=== PATIENT | male | born 1995 | race Caucasian/White ===

== ENCOUNTER 2019-02-13 20:04 | Inpatient (IN) | payer OTHER ==
[~2019-02-13] VITALS: Ht 182.9 cm; Wt 88.0 kg
[2019-02-13 20:09] VITALS: Ht 182.9 cm; Wt 88.0 kg
--- NOTE | 2019-02-13 20:10 | NUR ---
PT PRESENTS TO ED BIB [facility]. [place] [facility] HERE TO PLACE PT ON 5150 HOLD. PER [facility] PT WAS FOUND OUTSIDE OF A BANK SLEEPING. PT FAMILY WAS APPARENTLY LOOKING FOR HIM WHEN PT STATED HE TOOK DOUBLE HIS ZYPREXA BECAUSE HE WANTED TO "SLEEP". PT MOTHER STATES THAT THE PRESCRIPTION WAS FILLED YESTERDAY AND SHE COUNTED THE PILLS AND THERFORE HE ONLY TOOK 40MG. PT IS AXO X4. PT APPEARS AGITATED AND IS YELLING AND SCREAMING AND PD. PT IS THRASHING ARMS AND LEGS. PT PT ATTEMPTING TO LEAVE UNIT AND STATES HE DOES NOT WANT TO STAY HERE. PT STATES THAT "MEDICINE IS EVIL". PT SPEAKING IN CLEAR AND FULL SENTENCES. PT DENIES PAIN, SI OR HI AT THIS TIME. AWAITING MSE AT THIS TIME
--- NOTE | 2019-02-13 20:14 | NUR ---
PT PLACED IN RESTRAINTS FOR YELLING AND CURSING AND AGITATION, NEWS CAMERAMAN WAS VIOLENT WITH PD AND FIRE
--- NOTE | 2019-02-13 20:32 | NUR ---
ORIGINAL 5150 PLACED IN CHART
[2019-02-13 20:45] LABS: BASOPHIL % 0.6 % (0-2); PLATELET COUNT 274 x10^3mcL (130-400); RED CELL DISTRIBUTION WIDTH 13.1 % (11.5-14.5)
--- NOTE | 2019-02-13 20:45 | NUR ---
ALL PERSONAL BELONGINGS REMOVED FROM PT AND PLACED IN RADIO ROOM WITH STICKER FOR LABEL ON BAG
[2019-02-13 20:55] LABS: CALCIUM 8.8 mg/dL (8.5-10.1); CARBON DIOXIDE 25.1 mmol/L (21-32); CHLORIDE SERUM 107 mmol/L (98-107); CREATININE SERUM 1.4 mg/dL (0.7-1.3); GFR1 > 60 mL/min; GLUCOSE SERUM 121 mg/dL (74-106); POTASSIUM SERUM 3.5 mmol/L (3.5-5.1); SODIUM SERUM 145 mmol/L (136-145)
--- NOTE | 2019-02-13 20:55 | NUR ---
BROTHER AT [facility] PT STATES THAT HIS MOTHER IS NOT ALLOWED TO COME IN AT THIS TIME
[2019-02-13 21:02] LABS: AMPHETAMINE QUAL UR NONE DETECTED (See below)
[2019-02-13 21:04] LABS: ALBUMIN 4.5 g/dL (3.4-5.0); ALKALINE PHOSPHATASE 56 U/L (46-116); ALT/SGPT 23 U/L (16-63); AST/SGOT 16 U/L (15-37); BILIRUBIN TOTAL 0.9 mg/dL (0.20-1.00); TOTAL PROTEIN, SERUM 7.8 g/dL (6.4-8.2)
--- NOTE | 2019-02-13 21:45 | NUR ---
BROTHER STILL AT BEDSIDE. CURTAIN OPEN TO THE NURSES STATION. NAD AT THIS TIME. RESTRAINTS STILL IN PLACE. PT IS CALM AND COOPERATIVE AT THIS TIME
--- NOTE | 2019-02-13 22:03 | NUR ---
BL LE SOFT RESTRAINTS REMOVED FOR CONTINUED COOPERATION
--- NOTE | 2019-02-13 23:42 | NUR ---
BL WRIST RESTRAINTS REMOVED AT THIS TIME FOR PT COOPERATION. PT GIRLFRIEND AT BEDSIDE AT THIS TIME
--- NOTE | 2019-02-14 00:25 | NUR ---
PT PROVIDED WITH PUDDING, APPLE JUICE, APPLE SAUCE AND JELLO AT THIS TIME FOR HUNGER. GIRLFRIEND AND BROTHER STILL AT BEDSIDE
--- NOTE | 2019-02-14 02:11 | NUR ---
PT ASLEEP ON GURNEY, EASILY AROUSABLE, RESP E/U, IN NO ACUTE DISTRESS. BROTHER AT BEDSIDE.
--- NOTE | 2019-02-14 02:24 | NUR ---
PT AMBULATED TO THE RESTROOOM.
--- NOTE | 2019-02-14 03:35 | NUR ---
PT SEEN WANDERING AROUND ROOM AND TAKING HIS GOWN OFF. PT TOLD TO STAY IN ROOM. PT COOPERATIVE AT THIS TIME
--- NOTE | 2019-02-14 04:51 | NUR ---
PT SEEN AMBULATING TO RESTROOM WITH STEADY GAIT. ACCOMPANIED BY JONATHAN WARNER. PT RETURNED TO [facility] TO LAY IN [facility]
--- NOTE | 2019-02-14 06:36 | NUR ---
PT EASILY AROUSABLE AT THIS TIME. PT VITALS UPDATED. PT MADE AWARE BELONGINGS ARE KEPT BY US AND HE MAY HAVE THEM BACK UPON DISCHARGE. PT STATES HE WAS WORRIED ABOUT HIS SHIRT. ALL QUESTIONS ANSWERED AT THIS TIME
--- NOTE | 2019-02-14 07:10 | NUR ---
REPORT GIVEN TO ALESIA ARZOLA
--- NOTE | 2019-02-14 07:25 | NUR ---
RECEIVED PATIENT IN BED, ASKED IF HE CAN GO TO THE RESTROOM. AMBULATED WITH PATIENT TO RESTROOM. PATIENT AMBULATED TO RESTROOM WITH STEADY GAIT, RETURNED BACK TO BED 7, NOW EATING BREAKFAST. PATIENT IS AAO X 3 (NAME, , AND LOCATION). EYES - GORGE. MUCUS - PINK. LUNGS - CTA. BS PRESENT X 4 QUADRANTS. B/L UPPER AND LOWER EXT PULSES PALPABLE. WILL CONTINUE TO MONITOR.//APR RN
--- NOTE | 2019-02-14 07:40 | NUR ---
PATIENT REQUESTED TO CALL HIS FATHER, HAD PATIENT USE PHONE ON THE HALLWAY. PATIENT ABLE TO LEAVE MESSAGE FOR HIS FATHER. PATIENT RETURNED TO BED 7 AT THIS TIME.//SEP RN
--- NOTE | 2019-02-14 09:13 | NUR ---
MOTHER, ANGELI LU CALLED APPRISED OF PATIENT'S CONDITION. STATES "HE WAS FOUND BY PD IN [place], REFUSED TO TAKE MEDS, HE WAS DIAGNOSED WITH BIPOLAR WITH SEVERE PSYCHOSIS WITH HALLUCINATIONS X 3 YEARS AGO, TOOK ZYPREXIA LAST NIGHT 2 TABS (OF 20 MG), WAS SEEN BY PSYCHIATRIST ON FRIDAY. STATES TO CALL HIS FATHER BARBIE AVILA WHO IS THE PRESIDENT OF [facility] HE'S AT [phone]. MOTHER'S CONTACT NUMBER [phone]. PSYCHIATRIST NAME YAKELIN HALIMA AT [phone]. MOTHER WILL CALL PATIENT'S FATHER TO ARRANGE POTENTIAL TRANSFER/ADMISSION TO [facility]. REFRIGERATION PLANT OPERATOR AND BUSINESS OBJECTS DEVELOPER MADE AWARE./SEP RN
--- NOTE | 2019-02-14 09:45 | NUR ---
PATIENT'S FATHER CALLED, STATES "I'LL TRY TO GET HIM A BED AT [facility]." STATES 'IF YOU CAN CALL HIS PSYCHIATRIST, DR VARGHESE REGARDING HIS ZYPREXIA MEDICATION AND I'LL SEE WHAT I CAN DO ON GETTING HIM A BED HERE BUT IT'S LONG WEEKEND, BUT I'LL GET BACK TO YOU." PATIENT TALKING TO FATHER AT THIS TIME, GETTING AGITATED DR JACOBO MADE AWARE.//APR RN
--- NOTE | 2019-02-14 10:15 | NUR ---
APPRISED DR JACOBO ABOUT MY CONVERSATIONS WITH PATIENT'S PARENTS. ADVISED OF ? ABOUT ZYPREXIA MEDS, PER DR ROCHA PATIENT IS HERE FOR ZYPREXIA OD. NO NEW ORDERS GIVEN AT THIS TIME//SEP RN
--- NOTE | 2019-02-14 10:26 | NUR ---
Report was given at change of shift and am aware of patient per monitoring notes and plan facilitated by staff and family
--- NOTE | 2019-02-14 10:26 | NUR ---
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 I WILL GET DROPPED OUT AGAIN BECAUSE OF THIS STUPID FUCKING HOLD." ADVISED PATIENT TO CALM DOWN HE IS BECOMING VERBALLY ABUSIVE. PATIENT WENT BACK TO BED AT THIS TIME//APR RN
--- NOTE | 2019-02-14 10:36 | NUR ---
RECEIVED A CALL FROM PATIENT'S MOTHER, STATES "DR VARGHESE STATES HE CAN GET HIM AT [facility] FOR PLACEMENT." MOTION PICTURE SCENE BUILDER MADE AWARE.//SEP RN
--- NOTE | 2019-02-14 10:45 | NUR ---
PATIENT ASKED TO SPEAK TO HIS MOTHER, CALLED PATIENT'S MOTHER AT [phone]. JAMSHID RAMIREZ'S PHONEN# GIVEN AT [phone] AT THIS TIME.//SEP DARIUSZ
--- NOTE | 2019-02-14 12:07 | NUR ---
PATIENT SLEEPING AT THIS TIME//APR RN
--- NOTE | 2019-02-14 12:14 | NUR ---
LUNCH PROVIDED FOR PATIENT//APR RN
--- NOTE | 2019-02-14 12:38 | NUR ---
PATIENT ATE 100% OF LUNCH.//APR RN
--- NOTE | 2019-02-14 13:15 | NUR ---
PT LAYING IN GURNEY AWAKE, ALERT, RESP E/U, NAD NOTED, GIRLFRIEND AT BEDSIDE. PT CALM AND COOPERATIVE.
--- NOTE | 2019-02-14 13:44 | NUR ---
SORIN WILSON AT BEDSIDE SPEAKING WITH PT REGARDING PLAN OF CARE.
--- NOTE | 2019-02-14 14:01 | NUR ---
PT HAVING QUESTIONS REGARDING HIS PLAN OF CARE. PT STS "I NEED TO SEE MY MEDICAL RECORDS." INFORMED PT THAT I AM UNABLE TO LET HIM SEE HIS ELECTRONIC MEDICAL RECORDS AT THIS TIME. AND IF HE WOULD LIKE TO SEE HIS PAPER RECORDS HE WOULD BE ABLE TO OBTAIN THAT THROUGH MEDICAL RECORDS. PT WONDERING "WHY AM I STAYING." STEPPED INTO ROOM WITH PT TO SPEAK WITH HIM. PT REPORTING THAT HE "DOESN'T REMEMBER WHAT HAPPENED" AND "HOW I GOT HERE LAST NIGHT." LET PT KNOW THAT HOW HE GOT HERE AND HIS PLAN OF CARE FOR ADMISSION AND THAT HE WILL BE REEVALUATED BY PSYCHIATRY ONCE HE IS ADMITTED. PT'S BROTHER BROUGHT HIM AN ENTIRE BAG OF BELONGINGS. LET PT KNOW THAT HE IS ABLE TO HAVE CERTAIN BELONGINGS LONG HE CONTINUES TO REMAIN CALM AND COOPERTIVE. PT HAS PHONE IN HAND, PT AWARE THAT IF PHONE BECOMES AN ISSUE, THAT I WILL HAVE TO PUT IT WITH THE REST OF HIS BELONGINGS. PT AGREED.
[2019-02-14] MEDS ORDERED: ZYPREXA20 M1 PO (14:13)
--- NOTE | 2019-02-14 14:20 | NUR ---
LET PT KNOW THAT HE NEEDS AN IV IN PLACE PER ADMISSION TO MED SURG UNIT. PT REFUSED IV. EDUCATED PT ON NEEDS TO WHY IV WOULD BE NEEDED. PT VERBALIZED UNDERSTANDING AND STILL REFUSING IV PLACEMENT.
--- NOTE | 2019-02-14 14:29 | NUR ---
PT SITTING ON GURNEY, AWAKE, ALERT, RESP E/U, NAD NOTED, AWAITING ADMISSION TO MED SURG UNIT. GIRLFRIEND AT BEDSIDE.
--- NOTE | 2019-02-14 14:50 | NUR ---
ASKED BY PT TO SPEAK WITH HIS FATHER. PT'S FATHER HAD QUESTIONS REGARDING PLAN OF CARE AND INQUIRING ABOUT PT GOING TO [facility], WHERE HIS PSYCHIATRIST DR VARGHESE IS. LET FATHER KNOW THAT WE HAVE ATTEMPTED TO CALL [facility] AND HAVE ALREADY FAXED OVER PT'S INFORMATION, HOWEVER, WE HAVE BEEN INFORMED THAT [facility] IS CURRENTLY AT [facility]. PT'S FATHER REPORTS THAT HE WILL TRY AND GET IN CONTACT WITH DR VARGHESE.
--- NOTE | 2019-02-14 14:52 | NUR ---
SPOKE TO PT REGARDING WANTING TO GO TO [facility]. LET HIM KNOW THAT I HAVE BEEN TOLD THAT THEY ARE AT [facility]. PT UNDERSTOOD AND VERBALIZED UNDERSTANDING OF ADMISSION TO MED SURG AT THIS TIME.
--- NOTE | 2019-02-14 14:59 | NUR ---
REPORT GIVEN TO DARIUSZ FRIEDMAN
--- NOTE | 2019-02-14 15:07 | NUR ---
PT TRANSPORTED TO MED SURG AT THIS TIME BY EMT CELINA AND RN ALESIA VIA WHEELCHAIR. PT IS AWAKE AND ALERT, CALM AND COOPERATIVE, RESP E/U, ALL BELONGINGS SENT WITH PT. ORIGINAL 5150 HOLD IN CHART. PT ACCOMPANIED BY HIS GIRILFRIEND. NAD NOTED UPON LEAVING ED.
--- NOTE | 2019-02-14 15:10 | NUR ---
[facility] CALLED AND SPOKE WITH [facility] MEDICAL RECORD CONSULTANT INTAKE AND ASKING THE TIME WRITTEN THE 5150 HOLD. CHECKED THE 5150 HOLD THERE WAS NO TIME WRITTEN. ASKED [facility] FOR HER CONTACT NO.AND SHE GAVE TEL. [phone]. VERIFY FROM MANAGER BALANCE IF NEEDS ANOTHER 5150 HOLD OR A PSYCHIATRTIST TO SEE PATIENT FOR INTIAL ASSESSEMENT WHEN PATIENT COMES UP TO THE FLOOR. HE STATED THAT 5150 HOLD IS STILL OKAY. 1545- CALLED TO [facility] AND SPOKE TO OLESYA AND TO INFORMED THAT PD OFFICER WROTE A 5150 HOLD BUT THERE WAS NO TIME WHEN IT WAS WRITTEN. SHE STATED THAT HE'LL SEND THE OFFICER. 1613- [place] [employer] OFFICER KIRBY CAME AND WRITE THE TIME. CALLED TO [place] AND SPOKE WITH CONTRERAS AND TOLD THAT IT WAS ALREADY BEEN FIXED THE TIME. SHE REQUESTED TO FAX THE 5150 HOLD AND SHE GAVE THE FAX NO.[phone] AND SENT TO HER.SHE STATED THAT SHE'LL BACK AND GIVE THE ROOM NO AND TEL.NO. TO GIVE REPORT. 8271-[employer] CALLED BACK AND WANTS AN UPDATE OF THE PATIENT AND GAVE TO IDALIA ARZOLA IN CHARGE OF THE PATIENT FOR AN UPDATE.
[2019-02-14 15:22] VITALS: BP 134/61
--- NOTE | 2019-02-14 15:46 | NUR ---
RECEIVED PT FROM ER, PT ADMIT FOR SUICIDAL IDEA, 5150, OVERDOSE, PT IS A/O X4, VERBAL RESPONSIVE, ABLE TO TELL WHAT HE NEEDS. LUNG SOUND CLEAR BILATERAL, NO COUGH, NO SOB, PT DENY ANY CHEST PAIN OR DISCOMFORT, BOWEL SOUND PRESENT ALL 4 QUADRANTS, NO DISTENTION, NO TENDER. PEDAL PULSE PRESENT BOTH FEET, NO EDEMA, PT REFUSED IV ACCESSS, PT DENY ANY SUICIDAL THOUGHS AT THIS MOMENT, PT DENY ANY ATTEMPT IN THE PAST, ALL ADLS ASSIST, ALL NEED MET, CALL LIGHT IN REACH, WILL CONTINUE TO MONITOR.
--- NOTE | 2019-02-14 17:02 | NUR ---
CONTRERAS FROM [facility] CALLED, AND SAID THEY HAVE AN ACCEPTING DR, IT IS DR ADRIAN AND THE PATIENT WILL GO TO WILL GO TO UNIT # 2. SHE OBTAINED A HISTORY AND PHYSICAL FROM ME AND SHE APPROVED HIS TRANSFER. SHE SAYS THEY WILL HAVE A BED WHEN HE ARRIVES, TO JUST CALL TO CALL CONTRERAS TO LET HER KNOW THE ETA. LACY RUSSELL CALLED STEVE ROWELL TO LET HER KNOW.
--- NOTE | 2019-02-14 17:06 | NUR ---
HAVE MONITORED NOTES DURING PATIENTS VISIT AND AM AWARE OF PLAN
--- NOTE | 2019-02-14 17:13 | NUR ---
I CALLED CONTRERAS AT [facility] AND GAVE HER THE ETA OF THE AMBULANCE TO ARRIVE HERE TO TAKE HIM TO [facility], WHICH IS 1900. SERGE NUMBER IS [phone].
--- NOTE | 2019-02-14 17:13 | NUR ---
CALLED TO [facility] AND SPOKE WITH MELITON AND MAKE ARRANGEMENT FOR TRANSFER TO [facility] AND INSPECTOR [employer] TIME AT 1900. CALLED TO THE MOTHER ANGELI TEL.[phone] AND LEFT A MESSAGE.
[2019-02-14 17:15] VITALS: BP 134/61
--- NOTE | 2019-02-14 17:39 | NUR ---
HE SIGNED HIS TRANSFER PAPERS TO [facility]. HE ASKED IF HE COULD HAVE HIS BELONGINGS SO HE COULD CHANGE HIS CLOTHES, AND I TOLD HIM HE COULD GET THEM AFTER HE GETS TO [facility] AND THEY SEARCH HIS BELONGINGS, HE DIDNT GET UPSET. HE HAS HIS PHONE AT THIS TIME, AND WE ARE HOLDING ON TO HIS BELONGINGS BAG OF CLOTHES.
--- NOTE | 2019-02-14 18:23 | NUR ---
AAO TIMES 4. 1:1 SITTER IS AT THE BEDSIDE. PATIENTS GIRLFRIEND IS ALSO PRESENT. NO SOB. HE IS ACTING CALM AND SPEAKING SLOWLY, HE ANSERS QUESTIONS APPROPRIATELY. DENIES DISCOMFORT. HE ATE DINNER. NO IV SITE, HE REFUSED TO GET ONE. NO TELE. WE ARE WAITING FOR [facility] TO COME PICK HIM UP TO TAKE HIM TO [facility].
--- NOTE | 2019-02-14 19:25 | NUR ---
REC'D PT FROM DAY NURSE. PT'S GIRLFRIEND AND BROTHER AT BEDSIDE. PT SITTING AT THE SIDE OF THE BED. AAOX4, SPEECH CLEAR, FOLLOWS COMMANDS. DENIES RESP DISTRESS OR SOB. BREATHING EVEN/UNLABORED ON RA. MED SURG, NO TELE. ABD SOFT/FLAT/NONTENDER. VOIDING FREELY. AMBULATORY. SKIN INTACT. NO IV ACCESS. 5150 HOLD. DENIES ANY SI, HI, OR HALLUCINATIONS. TO TX TO [facility] ESCROW REPRESENTATIVE SCHEDULED FOR 1899.
--- NOTE | 2019-02-14 19:37 | NUR ---
REPORT GIVEN TO [facility]. ALL BELONGINGS INCLUDING PT'S HOME MED, ZYPREXA, GIVEN TO PARAMEDICS. ARM BANDS REMOVED. PT TAKEN DOWN VIA GURNEY.
== END 2019-02-14 19:40 | DRG 918 ==
LOC: ED 20:04 → MU 02-14 13:57
PROVIDERS: Emergency Medicine; ADMIT Internal Medicine
DX: T43.591A Poisoning by other antipsychotics and neuroleptics, accidental (unintentional), initial encounter (principal); R45.1 Restlessness and agitation; F31.9 Bipolar disorder, unspecified; Y92.89 Other specified places as the place of occurrence of the external cause; Z88.8 Allergy status to other drugs, medicaments and biological substances; Z79.899 Other long term (current) drug therapy
CPT/HCPCS: G0378; G0480